=== PATIENT | female | born 1990 | race Two or more races ===

== ENCOUNTER → 2020-09-14 13:09 | Outpatient (CLI) | payer MEDICAID, SELFPAY ==
[2020-09-14 11:13] VITALS: BMI 28.3
== END ==
PROVIDERS: PCP Family Medicine; Visit Provider Nurse Practitioner Women's Health
DX: R10.2 Pelvic and perineal pain (principal)
CPT/HCPCS: 87070; 87205

== ENCOUNTER → 2020-10-01 12:55 | Outpatient (CLI) | payer MEDICAID, SELFPAY ==
[2020-10-01 10:50] VITALS: BMI 28.5
[2020-10-01 16:09] LABS: Chlamydia Trachomatis by PCR Negative (Negative); Neisserai gonorrhoeae by PCR Negative (Negative); Probe Check PASS; Sample Adequacy Control PASS; Specimen Processing Control PASS
== END ==
PROVIDERS: PCP Family Medicine; Referring Provider Nurse Practitioner Women's Health; Visit Provider Nurse Practitioner Women's Health
DX: Z11.3 Encounter for screening for infections with a predominantly sexual mode of transmission (principal)
CPT/HCPCS: 87491; 87591

== ENCOUNTER 2021-02-02 12:48 | Day surgery (SDC) | payer MEDICAID, SELFPAY ==
[2020-12-21 13:59] VITALS: BMI 29.8
[2021-01-28 15:50] VITALS: BMI 29.8
--- NOTE | 2021-02-01 13:27 | EKG12_ITS ---
Test Reason : PREOP Blood Pressure : / mmHG Vent. Rate : 082 BPM Atrial Rate : 082 BPM P-R Int : 180 ms QRS Dur : 106 ms QT Int : 386 ms P-R-T Axes : 062 094 050 degrees QTc Int : 450 ms Normal sinus rhythm Normal ECG Confirmed by SHARON DONOVAN, DEEPTI ([id number]), city editor STEPHANIE ARAMBULA ([id number]) on 02/01/2021 2:31:57 PM Referred By: Romina Moe Confirmed By:DEEPTI HERRERA MD
[2021-02-01 15:09] LABS: Hemoglobin 12.1 g/dL (12.0-15.0); Mean Corpuscular Hgb 26.4 pg (27.0-32.0); Mean Corpuscular Volume 85.2 fL (81-99); Mean Platelet Vol. 10.8 fl (6.2-12.0); Platelet Count 250 K/mm3 (150-450); RBC Distribution Width CV 12.7 % (11.6-14.6); Red Blood Count 4.58 M/mm3 (4.2-5.4); White Blood Count 5.4 K/mm3 (4.4-11.0)
[2021-02-01 15:43] LABS: Anion Gap 4 (5-15); BUN 7 mg/dL (7-18); BUN/Creat Ratio 13.5 RATIO (10-20); Calcium,Total 8.8 mg/dL (8.5-10.1); Chloride 105 mmol/L (98-107); Creatinine, Serum 0.52 mg/dL (0.55-1.02); EST Glomerular Filtration Rate 146 mL/min (>60); Est Glom Filt Rate - Afr Amer 177 mL/min (>60); Glucose 66 mg/dL (74-106); Potassium 3.6 mmol/L (3.5-5.1); Sodium Level 139 mmol/L (136-145)
[2021-02-02] VITALS (8 sets, daily range): BP systolic 101–120; BP diastolic 61–77; PULSE 69–85; RESP 16–18; TEMP 36.4–36.8; O2SAT 97–100; BMI 30.1
--- NOTE | 2021-02-02 | EMB_PTH ---
PATIENT: TRI SEXTON LOC: [facility] [place] U#:[id number] AGE/SX: 30/F ROOM: RE02/02/[address]: Dr. Romina Moe MD : 1990 BED: DIS: 02/02/2021 SPEC #: [id number] RECD: 02/02/21 15:42 STATUS: AMAURY REQ #: [id number] YAS: 02/02/21 00:[address]: Romina Moe DEPT: SURGICAL PATHOLOGY RECD BY: Vin Ignacio ENTERED: 02/03/21 07:33 SP TYPE: ENDOM BX/C OTHR DR: Dr. Giuliano Gill MD Tissues: Endometrium, NOS Procedures: Surgery Specimen Level IV HEADER OPERATION: Diagnostic laparoscopy, hysteroscopy, D & C PRE-OP DIAGNOSIS: Abnormal uterine bleeding; endometriosis, pelvic pain TISSUE SUBMITTED: Endometrial curettings MICROSCOPIC DIAGNOSIS Endometrial curettings: Proliferative endometrium. Fragments of benign ecto- and endocervical epithelium. SHERRI:fish 02/04/2021 MICROSCOPIC DESCRIPTION Slides are reviewed. GROSS DESCRIPTION Received in fixative is one container labeled with the patient's name and designated endometrial curettings. The specimen consists of multiple fragments of hemorrhagic soft tissue mixed with mucoid tissue that in aggregate measure 3 x 2.5 x 0.3 cm. The specimen is totally submitted in one cassette. / SHERRI:fish 02/03/21 TC:4 CPT: 31223
[2021-02-02 13:33] LABS: Internal QC Validated? YES +Cl - CLEAR BKGD; Pregnancy, Urine Negative Negative
[2021-02-02] MEDS: Lactated Ringers 1,000 ML 100 ML IV (13:52)
[2021-02-02] MEDS: Bupivacaine 0.25% 30 ML Vial (15:00)
--- NOTE | 2021-02-02 15:10 | PCM.OPRPT ---
Problem List (1) Abnormal uterine bleeding Status: Acute Comment: heavier since last delivery (2) Endometriosis Status: Acute Comment: ocps in past, laparoscopy. worsening. depot lupron in the past. recommend diagnostic laparosocpy ablation endometriosis d and c hysterosocpy (3) Pelvic pain Status: Acute Comment: Normal US and CT 08/2020 scanned to chart Failed antibiotic tx Arrange for PFPT GCC pending Report of Operation Date of Procedure: 02/02/21 Pre-Operative Diagnosis: aub endometriosis pelvic pain Post-Operative Diagnosis: same Surgery/Procedure Performed:: diagnostic laparoscopy d and c hysteroscopy logistics planning engineer: Angelina Gao Type of Anesthesia:: General Special Medications: none Specimen's removed: emc Drains: none Estimated Blood Loss (mL): 10 Fluids Replaced: crystlaloid Description of Procedure: Patient was taken the operating room and placed under neural anesthesia. She was prepped and draped in normal sterile fashion in the dorsolithotomy position. Bladder was drained clear urine and uterus sounded to 8 cm uterine manipulator was placed. Umbilical incision was made through the previous incision and the abdomen insufflated with CO2 gas after the incision was injected with quarter percent Marcaine. Diagnostic laparoscopy was performed with a 5 mm scope after the Optiview trocar was placed under direct visualization. Entire abdomen was well visualized and minimal scar tissue from previous surgeries were seen nothing active that would cause the patient's symptoms. Uterus tubes and ovaries were noted be within normal limits with no endometriosis implants seen. Full mobility of the uterus anteriorly and posteriorly was noted with no significant abnormalities. No additional abnormal vasculature was seen or pelvic congestion. All instruments removed from the abdomen and the incision was closed with 3-0 Monocryl. Hysteroscopy was then performed and lining of the uterus was noted to be showing no gross abnormalities. Sharp curettage was performed and specimen sent to pathology for analysis. Excellent hemostasis was noted and all instruments were removed from the patient patient was awoken and taken to the recovery in stable condition. Multi Select Codes - Urinary/Genital Urinary/Genital CPT Codes: 91361 Hysteroscopy,EMC, Polypectomy, Other Procedure See Report - [id number]
--- NOTE | 2021-02-02 15:15 | DCINST_ITS ---
Discharge Diet: No Restrictions - Increase fluid intake for the next 48 hours. Discharge Activity: Return to Normal Activity, May Drive - when you are no longer taking narcotic pain medications., May Shower, May Take a Tub Bath - in 7 days Additional Activity Instructions:: Ambulate often the next week after surgery. Nothing in the vagina for 5 days. Call your doctor if your incision/area has: Continuous Slow Oozing, Sudden Increased Bleeding, Increased Pain/ Swelling, Increased Redness, Foul Smelling Discharge Call your doctor if you observe: Fever of 101 or Higher Allergies/Adverse Reactions: Allergies hydrocodone Allergy (Intermediate, Verified 02/02/21 13:25) Nausea ibuprofen Allergy (Intermediate, Verified 02/02/21 13:25) Nausea/Vom/Diarrhea latex Allergy (Intermediate, Verified 02/02/21 13:25) Hives triptins Allergy (Intermediate, Uncoded 02/02/21 13:25) Chest tightness Medications to take at Discharge calcium citrate 250 mg calcium-vitamin D3 5 mcg (200 unit) tablet 1 tab PO DAILY 12/21/20 hydroxychloroquine 200 mg tablet 200 mg PO QHS 12/21/20 magnesium oxide 400 mg PO DAILY 12/21/20 prednisone 5 mg tablet 5 mg PO QHS 12/21/20 turmeric 400 mg capsule 400 mg PO DAILY 12/21/20 zinc 50 mg tablet 50 mg PO DAILY 12/21/20 Albuterol Aerosols [Ventolin Aerosols] 2.5 mg INHALATION Q4H PRN PRN 01/27/21 Albuterol IH (ProAir) [Proair Hfa (SP)Vent Pts] 1 - 2 puff INHALATION Q4H PRN PRN 01/27/21 [place]-3S/Dha/Epa/Fish Oil [Fish Oil 1,200 mg Softgel] 1 each PO DAILY 01/27/21 Tranexamic Acid 1,300 mg PO TID PRN 01/27/21 oxycodone-acetaminophen 5 mg-325 mg tablet 1 tablet PO Q4H PRN #20 tablet 01/29/21 promethazine 12.5 mg tablet 12.5 mg PO Q6H PRN #120 tablet 01/29/21 Primary Care Physician: Giuliano Gill MD [Primary Care Provider] - Test Results: Test results from this visit will be discussed in further detail at your follow- up appointment, if applicable. Please Follow Up With: Romina Moe MD - [phone]
[2021-02-02] MEDS: oxyCODONE 5 MG Tablet PO (17:25)
--- NOTE | 2021-02-04 08:00 | HP.PCM_ITS ---
- Problem List (1) Abnormal uterine bleeding Status: Acute Comment: heavier since last delivery (2) Endometriosis Status: Acute Comment: ocps in past, laparoscopy. worsening. depot lupron in the past. recommend diagnostic laparosocpy ablation endometriosis d and c hysterosocpy (3) Pelvic pain Status: Acute Comment: Normal US and CT 08/2020 scanned to chart Failed antibiotic tx Arrange for PFPT GCC pending History and Physical Date of Admission: 02/02/21 Intake Vital Signs 01/28/21 Height 5 ft 4 in 01/28/21 Weight: 174 lb 01/28/21 BMI 29.8 01/28/21 BP 120/70 Intake Visit Reasons: diag. lap. ablation of endometriosisi, D&C Client Service Coordinator Required: No Is patient in pain?: Yes Pain scale (1-10): 6 Allergies hydrocodone Allergy (Intermediate, Verified 01/28/21 15:50) Nausea ibuprofen Allergy (Intermediate, Verified 01/28/21 15:50) Nausea/Vom/Diarrhea latex Allergy (Intermediate, Verified 01/28/21 15:50) Hives triptins Allergy (Intermediate, Uncoded 01/27/21 10:23) Chest tightness Is last menstrual period known: Yes Last Menstral Period: 01/11/21 Post menopausal: No Patient : No : No PFSH Medical History Endometriosis (Acute) Lupus (Acute) Migraine (Acute) PID (acute pelvic inflammatory disease) (Acute) Rheumatoid arthritis (Acute) Surgical History H/O colonoscopy (Acute) H/O dilation and curettage (Acute) H/O endoscopy (Acute) H/O laparoscopy (Acute) History of tonsillectomy (Acute) S/P (Acute) Family History Mother Cervical cancer Grandmother Lung cancer Social History (Updated 01/28/21 @ 16:[address] Romina Moe MD) household members: significant other, children number of children: 2 current occupational status: unemployed current occupation: [employer] history of recent travel: No sexually active: Yes Smoking Status: Former smoker alcohol intake: current alcohol intake frequency: a few times a month substance use type: does not use what type of physical activity do you participate in: aerobics seatbelt use: always do you feel safe at home: Yes additional social history: boyfriend - Robby Kaplan [facility] diag. lap. ablation of endometriosisi, D&C: Details: TRI SEXTON is a 30 year old who presents for d and c hysteroscopy and ablation of endometriosis for pelvic pain, endoemtriosis. Female Reproductive History Last Menstral Period: 01/11/21 Cycle Length: 21-35 Bleeding Duration: 7 Questions: Metorrhagia: No, Sexually active: Yes, Dyspareunia: Yes, PCB: No Pregancy History 4 Elective abortions Hx Para 2 Spontaneous abortions Hx # Term Pregnancies Ectopic pregnancies Hx # Pregnancies Multiple births # of living children 2 Past Pregnancies Del. Date Name GA/Weeks Outcome Route Bth Weight Gen Labor Lgth Anesthesia Del Locatn Provider FOB 03/12/17 [place] 07/03/20 [place] ROS Const Constitutional: Denies fatigue, fever(s), headache(s), increased appetite, poor appetite, weight gain or weight loss Cardio Card: Denies chest pain Resp Resp: Denies cough or dyspnea : Reports as per HPI; denies difficulty urinating, painful urination, nipple discharge, urinary frequency, urinary incontinence, urinary hesitancy, urinary urgency, vaginal discharge, vaginal dryness, vaginal odor or vaginal itching Skin Skin/Breast: Denies change in hair, breast lump, breast pain, breast skin changes or nipple discharge Exam Const General: cooperative, healthy appearing, comfortable, no acute distress, well developed Nutritional Appearance: average body habitus Orientation: alert [facility] Head: normal to inspection, normocephalic Neck Neck: normal visual inspection, trachea midline Thyroid: thyroid normal Resp Effort & Inspection: normal respiratory effort GI Inspection: normal to inspection, non-distended Palpation: soft, no hepatosplenomegaly General: bladder normal to palpation External Female Exam: normal external appearance, normal appearance of the urethra Urethra: normal appearance of the urethra, normal palpation, no discharge Speculum Exam - Vagina: normal appearance of the vagina, normal vaginal dis charge Speculum Exam - Cervix: normal appearance of the cervix, nontender Bimanual Exam- Vagina & Uterus: normal bimanual exam, uterine size normal, bladder normal to palpation, uterine shape normal, No cervical tenderness, uterine mobility normal, uterine consistency normal, normal cervical palpation, uterus non-tender Bimanual Exam- Adnexa, other: normal adnexae, adnexae mobile, no adnexal masses, pelvic support normal Pelvic Support: normal Skin General: no rashes or lesions noted Assessment & Plan Problems 1. Abnormal uterine bleeding N93.9 heavier since last delivery 2. Endometriosis N80.9 ocps in past, laparoscopy. worsening. depot lupron in the past. recommend diagnostic laparosocpy ablation endometriosis d and c hysterosocpy 3. Pelvic pain R10.[address] 08/2020 scanned to chart Failed antibiotic tx Arrange for PFPT GCC pending Plan After discussing the patient's diagnosis and treatment plan options, patient wishes to proceed with surgical management. I have discussed with the patient the risks, benefits, and alternatives of the procedure which include but are not limited to risks of anesthesia, bleeding, infection, possible damage to bowel, bladder, or surrounding vasculature which could lead to additional surgery to evaluate any complications. Patient agrees to procedure and wishes to proceed. ACOG/uptodate references given for additional information regarding procedure. Coding Level of Care Code No Charge Diagnoses Abnormal uterine bleeding N93.9 Endometriosis N80.9 Pelvic pain R10.2 UPDATE- I have seen the patient and performed any clinically relevant updates to the history and physical exam. Romina Moe MD
== END 2021-02-02 17:40 | disposition home or self-care (01) ==
LOC: SDC 12:49 → AC 12:50
PROVIDERS: Anesthesiology; PCP Family Medicine; Referring Provider Obstetrics & Gynecology; Visit Provider Obstetrics & Gynecology
PROC: (CPT 49320; principal; 2021-02-02 14:30)
DX: N93.9 Abnormal uterine and vaginal bleeding, unspecified (principal); Z20.828 Contact with and (suspected) exposure to other viral communicable diseases; N80.9 Endometriosis, unspecified; R10.2 Pelvic and perineal pain; Z79.899 Other long term (current) drug therapy; Z87.891 Personal history of nicotine dependence; M06.9 Rheumatoid arthritis, unspecified; M32.9 Systemic lupus erythematosus, unspecified; G43.909 Migraine, unspecified, not intractable, without status migrainosus
CPT/HCPCS: 00952; 58558; 36415; 80048; 81025; 85027; 86850; 86900; 86901; 87426; 88305; 93005; C9803; J7120; J2405

== ENCOUNTER → 2021-07-26 15:21 | Outpatient (CLI) | payer MEDICAID, SELFPAY ==
[2021-07-26 15:41] LABS: Absolute Lymphocyte Count 2.04 X10^3/uL (0.83-4.51); Absolute Neutrophil Count 3.1 X10^3/uL (2.0-7.7); Basophil# 0.02 X10^3/uL; Basophil% 0.3 % (0-1); Eosinophil# 0.05 X10^3/uL; Eosinophils% 0.8 % (0-5); Hematocrit 40.2 % (37-47); Hemoglobin 12.7 g/dL (12.0-15.0); Lymphocyte # 2.04 X10^3/ul (0.83-4.51); Lymphocyte % 34.2 % (19-41); Mean Corp Hgb Conc 31.6 g/dL (32-36); Mean Corpuscular Hgb 26.3 pg (27.0-32.0); Mean Corpuscular Volume 83.2 fL (81-99); Mean Platelet Vol. 10.2 fl (6.2-12.0); Monocyte# 0.79 X10^3/uL; Monocyte% 13.3 % (0-10); NRBC Flagged by Analyzer 0 % (0-5); Neutrophil # 3.05 X10^3/uL (2.7-7.7); Neutrophil % 51.2 % (47-70); Platelet Count 240 K/mm3 (150-450); RBC Distribution Width CV 12.5 % (11.6-14.6); RBC Distribution Width SD 37.8 fl (35.1-43.9); Red Blood Count 4.83 M/mm3 (4.2-5.4)
[2021-07-29 14:58] LABS: HPV APTIMA, High Risk Negative (Negative)
== END ==
PROVIDERS: PCP Family Medicine; Referring Provider Obstetrics & Gynecology; Visit Provider Obstetrics & Gynecology
DX: Z12.4 Encounter for screening for malignant neoplasm of cervix (principal); N93.9 Abnormal uterine and vaginal bleeding, unspecified
CPT/HCPCS: 36415; 85025; 87624; 88175; G0145

== ENCOUNTER 2022-07-28 10:29 | Day surgery (SDC) | payer MEDICAID, SELFPAY ==
[2022-07-28] VITALS (7 sets, daily range): BP systolic 105–119; BP diastolic 59–100; PULSE 70–83; RESP 16; TEMP 36.4–37.1; O2SAT 96–100; BMI 24.2
[2022-07-28 11:02] LABS: Internal QC Validated? YES +Cl - CLEAR BKGD
[2022-07-28 11:08] LABS: Pregnancy, Urine Negative Negative
[2022-07-28] MEDS: Lactated Ringers 1,000 ML 15 ML IV ×2 (11:25→13:29)
[2022-07-28] MEDS: Vancomycin IV 1,000 MG/200 ML BAG 200 MG IV (11:25)
--- NOTE | 2022-07-28 12:17 | DCINST_ITS ---
Discharge Instructions Diet Discharge Diet: No restrictions Activity Discharge Activity: May Not Shower May resume sexual activity in: 3 weeks Dressing / Incision Call your doctor if your incision/area has: Continuous Slow Oozing, Sudden Increased Bleeding, Increased Pain/ Swelling, Increased Redness, Foul Smelling Discharge and Swelling at the incision site Call your doctor if you observe: Fever of 101 or Higher, Inability to urinate and Inability to have a bowel movement Suture Line Care: Avoid Pulling/Pushing and Avoid Pinching/Bending Change Dressing in: do not change dressing Remove Dressing in: do not remove dressing Cleanse incision/area with: Keep Dressing Clean & Dry Follow Up Care Please Follow Up With: Gabriela Tierney MD When: next week in office as scheduled Test Results: Test results from this visit will be discussed in further detail at your follow- up appointment, if applicable. Discharge Plan Admission Attending Provider: Gabriela Tierney Primary Care Provider: Giuliano Gill Discharge Orders/Prescriptions Prescriptions: New oxycodone-acetaminophen [Percocet] 5-325 mg tablet 1 tab PO Q8H PRN (Reason: pain) 3 Days Qty: 10 0RF cephalexin [cephalexin] 500 mg capsule 500 mg PO Q12 3 Days Qty: 6 0RF Continued loratadine [Claritin] 10 mg tablet 10 mg PO DAILY gabapentin 300 mg capsule 300 mg PO TID fluoxetine 40 mg capsule 40 mg PO DAILY Qty: 30 12RF hydroxychloroquine [Plaquenil] 200 mg tablet 200 mg PO QHS calcium citrate 250 mg calcium-vitamin D3 5 mcg (200 unit) tablet 250 mg-5 mcg (200 unit) tablet 1 tab PO DAILY magnesium oxide 400 mg magnesium tablet 400 mg PO DAILY zgjfs-4y-kmr-epa-fish oil 1 EACH capsule 1 each PO DAILY albuterol sulfate 2.5 MG/3 ML solution for nebulization 2.5 mg INHALATION Q4H PRN PRN (Reason: Sob &/Or Wheezing) albuterol sulfate 1 PUFF inhaler 1 - 2 puff INHALATION Q4H PRN PRN (Reason: Sob &/Or Wheezing) zinc 15 mg Tablet 45 mg PO DAILY Botox 100 unit recon soln 100 unit IM QMONTH folic acid 400 mcg Tablet 0.4 mg PO DAILY zonisamide 100 mg capsule 100 mg PO DAILY ascorbic acid (vitamin C) [Vitamin C] 500 mg Tablet 500 mg PO DAILY fluticasone propionate 50 mcg/actuation spray,suspension 2 spray INTRANASAL DAILY B12 Active 1,000 mcg Tablet,Chewable 1,000 mcg PO DAILY Reyvow 100 mg Tablet 100 mg PO PRN PRN (Reason: Migraine Headache) Gemtesa 75 mg Tablet 75 mg PO DAILY Vitamin D (with calcium) 1,000 units PO/SL DAILY iuxiaik-nxjo-thjgv-oreg-capryl 1,000 mg PO/SL BID promethazine 12.5 mg tablet 12.5 mg PO Q6H PRN (Reason: nausea and vomiting) Qty: 120 4RF Referrals / Follow Up: Giuliano Gill MD [Primary Care Provider] - Disposition Disposition (needs filled in before D/C Order can be placed): Home, Self Care
--- NOTE | 2022-07-28 12:20 | RAD_ITS ---
STUDY: LATERAL VIEW OF THE SACRUM OF 1254 HOURS ON 07/28/2022 REASON FOR EXAM: 32-year-old female with Axonics Neurostimulator, Stage 1 placement. TECHNIQUE: One view of the pelvis was obtained. COMPARISON: None. FINDINGS: There are findings of placement of an Axonics Neurostimulator in the lower sacral region. There is no evidence of sacral or coccygeal fractures. The rectum a normal appearance. The anterior cervical soft tissues are normal in appearance. RAD/Pelvis 1 or 2 Views IMPRESSION: Axonics neurostimulator placement. Electronically Signed: Angel Urbano MD at 2:04 EDT ,
--- NOTE | 2022-07-28 12:21 | OP.PCM_ITS ---
Report of Operation Date of Procedure: 07/28/22 Pre-Operative Diagnosis: frequency of urination, urge incontinence, nocturia Post-Operative Diagnosis: same Surgery/Procedure Performed:: Axonics Stage 1 Description of Surgical Findings:: Surgeon: Gabriela Tierney Type of Anesthesia: MAC Estimated Blood Loss (mL): 5 cc Description of Procedure: The patient is a 32-year-old female with severe urinary urgency, frequency and urge incontinence as well as nocturia. She has failed first and second line management and now presents for a Axonics trial. Informed consent has been obtained. The patient was taken to the operating room and placed in a prone position on the operating room table. She was appropriately padded and secured. Anesthesia monitored the head, neck, airway, IV access and vital signs throughout the case. Once anesthesia was appropriately administered, the patient was prepped and draped in usual sterile fashion. Using fluoroscopic visualization, the sacrum was outlined including the S3 foramens bilaterally. The skin overlying these areas were then was then infiltrated with local anesthetic. At this time the needle was placed through the right side S3 foramen with good natalie response and no toe flexion, this was the best response obtained with bilateral needle insertions. The needle obturator was then removed and the guidewire was placed. A skin incision was made followed by placement of the dilator. The lead was then passed through the dilator into the pelvis using fluoroscopy for appropriate positioning. Good response was obtained on all 4 leads with natalie. The location of the pocket site was selected and the area was infiltrated with local anesthetic. A skin incision was made and the area was cauterized for hemostatic control. The lead was tunneled into the pocket site where it was cleaned and inserted in the lead extension. The tunneling device was then used to tunnel the lead extension to the contralateral side. The lead extension was then buried in the pocket site which was closed in 2 layers with 3-0 Vicryl interrupted suture followed by 4-0 Vicryl subcuticular suturing and skin glue. The lead insertion site was also closed with 4-0 Vicryl. The lead extension was secured to the skin using Steri- Strips. A drain sponge and OpSite's were then placed and everything was secured into position using cloth tape. The patient was then awakened and taken to the recovery room in good condition. There were no complications during this procedure. Grafts/Implants Used: Axonics lead and lead extension Complications none Admit VTE Documentation VTE Present on Admission: No VTE Mechan Device Prophylaxis: None VTE Pharm Prophylaxis ordered?: No Reason prophylaxis not ordered:: Treatment Not Indicated
[2022-07-28] MEDS: Lidocaine 1% /Epi 1:100 (20ml) 20 ML Vial (12:37)
== END 2022-07-28 14:17 | disposition home or self-care (01) ==
LOC: SDC 10:32 → AC 10:32
PROVIDERS: Anesthesiology; PCP Family Medicine; Visit Provider Urology
PROC: (CPT 64581; principal; 2022-07-28 12:20)
DX: N39.41 Urge incontinence (principal); M32.9 Systemic lupus erythematosus, unspecified; N94.12 Deep dyspareunia; R35.1 Nocturia; M79.7 Fibromyalgia; Z79.899 Other long term (current) drug therapy; Z87.891 Personal history of nicotine dependence
CPT/HCPCS: 64581; 72170; 76000; 81025; C1874; J7120; J2405

== ENCOUNTER 2022-08-18 07:19 | Day surgery (SDC) | payer MEDICAID, SELFPAY ==
[2022-08-18] VITALS (8 sets, daily range): BP systolic 126–145; BP diastolic 70–95; PULSE 72–82; RESP 16–18; TEMP 36.2–36.8; O2SAT 100
[2022-08-18 07:46] LABS: Internal QC Validated? YES +Cl - CLEAR BKGD
[2022-08-18 07:48] LABS: Pregnancy, Urine Negative Negative
[2022-08-18] MEDS: Lactated Ringers 1,000 ML 15 ML IV (07:58)
[2022-08-18] MEDS: Vancomycin IV 1,000 MG/200 ML BAG 200 MG IV (07:59)
--- NOTE | 2022-08-18 08:28 | DCINST_ITS ---
Discharge Instructions Diet Discharge Diet: No restrictions Activity Discharge Activity: May Shower (Tomorrow) May resume sexual activity in: 1 week Dressing / Incision Call your doctor if your incision/area has: Continuous Slow Oozing, Sudden Increased Bleeding, Increased Pain/ Swelling, Increased Redness, Foul Smelling Discharge and Swelling at the incision site Call your doctor if you observe: Fever of 101 or Higher, Inability to urinate and Inability to have a bowel movement Remove Dressing in: leave until fall off (Do not remove the skin glue) Follow Up Care Please Follow Up With: Gabriela Tierney MD When: In 2 to 4 weeks, call for appointment Test Results: Test results from this visit will be discussed in further detail at your follow- up appointment, if applicable. Discharge Plan Admission Attending Provider: Gabriela Tierney Primary Care Provider: Giuliano Gill Discharge Orders/Prescriptions Prescriptions: New oxycodone-acetaminophen [Percocet] 5-325 mg tablet 1 tab PO Q8H PRN (Reason: pain) 3 Days Qty: 10 0RF cephalexin [cephalexin] 500 mg capsule 500 mg PO Q12 3 Days Qty: 6 0RF Continued loratadine [Claritin] 10 mg tablet 10 mg PO DAILY gabapentin 300 mg capsule 300 mg PO TID hydroxychloroquine [Plaquenil] 200 mg tablet 200 mg PO QHS calcium citrate 250 mg calcium-vitamin D3 5 mcg (200 unit) tablet 250 mg-5 mcg (200 unit) tablet 1 tab PO DAILY magnesium oxide 400 mg magnesium tablet 400 mg PO DAILY ondansetron HCl 4 mg tablet 4 mg PO Q6H tizanidine 4 mg capsule 4 mg PO Q8H PRN (Reason: Spasms) flaxseed oil 1,000 mg capsule 1,000 mg PO DAILY Rx Instructions: administer with a meal pywsn-8o-cdn-epa-fish oil 1 EACH capsule 1 each PO DAILY albuterol sulfate 1 PUFF inhaler 1 - 2 puff INHALATION Q4H PRN PRN (Reason: Sob &/Or Wheezing) zinc 15 mg Tablet 45 mg PO DAILY Botox 100 unit recon soln 100 unit IM QMONTH folic acid 400 mcg Tablet 0.4 mg PO DAILY zonisamide 100 mg capsule 100 mg PO DAILY ascorbic acid (vitamin C) [Vitamin C] 500 mg Tablet 500 mg PO DAILY fluticasone propionate 50 mcg/actuation spray,suspension 2 spray INTRANASAL DAILY mecobalamin (vitamin B12) [B12 Active] 1,000 mcg Tablet,Chewable 1,000 mcg PO DAILY Reyvow 100 mg Tablet 100 mg PO PRN PRN (Reason: Migraine Headache) Gemtesa 75 mg Tablet 75 mg PO DAILY Vitamin D (with calcium) 1,000 units PO/SL DAILY etwuxxc-lslu-lzlqr-oreg-capryl 1,000 mg PO/SL BID promethazine 12.5 mg tablet 12.5 mg PO Q6H PRN (Reason: nausea and vomiting) Qty: 120 4RF fluoxetine 40 mg capsule See Rx Instructions .ROUTE .COMPLEX Qty: 30 12RF Dose Instruction: TAKE ONE CAPSULE BY MOUTH ONCE DAILY Rx Instructions: TAKE ONE CAPSULE BY MOUTH ONCE DAILY Referrals / Follow Up: Giuliano Gill MD [Primary Care Provider] - Disposition Disposition (needs filled in before D/C Order can be placed): Home, Self Care
--- NOTE | 2022-08-18 08:31 | PCM.OPRPT ---
Report of Operation Date of Procedure: 08/18/22 Pre-Operative Diagnosis: Urge incontinence, frequency, nocturia Post-Operative Diagnosis: Same Surgery/Procedure Performed:: Axonics stage II Surgeon: Gabriela Tierney Type of Anesthesia: MAC Estimated Blood Loss (mL): 5 cc Description of Procedure: The patient is a 32-year-old female with severe urge incontinence, frequency and nocturia who passed a stage I Axonics trial now presenting for implantation of her IPG. Informed consent was obtained. The patient was taken to the operating room and placed in a prone position on the operating room table. She was appropriately padded and secured to the table. Anesthesia monitored the head, neck, airway, IV access and vital signs throughout the case. Once anesthesia was appropriately administered the patient was prepped and draped in usual sterile fashion. The incision over the pocket site was infiltrated with local anesthetic and then opened using the knife with care being taken to avoid injury to the lead. Using the torque wrench the lead was removed from the lead extension which was cut and removed from the field. The pocket site was enlarged using the knife, blunt dissection and cautery. Once hemostasis was obtained, the lead was dried and inserted into the IPG and secured using the torque wrench. No inappropriate impedances were identified. The IPG was placed into the pocket site which was closed in 2 layers using first 3-0 interrupted followed by 4-0 subcuticular suturing and then skin glue was applied. The patient was then awakened and taken to the recovery room in good condition. There were no complications during this procedure. Grafts/Implants Used: Axonics IPG Complications None Admit VTE Documentation VTE Present on Admission: No VTE Mechan Device Prophylaxis: None VTE Pharm Prophylaxis ordered?: No Reason prophylaxis not ordered:: Treatment Not Indicated
[2022-08-18] MEDS: Bupivacaine 0.25% 30 ML Vial (08:52)
== END 2022-08-18 10:20 | disposition home or self-care (01) ==
LOC: SDC 07:21 → AC 07:22
PROVIDERS: Anesthesiology; PCP Family Medicine; Referring Provider Urology; Visit Provider Urology
PROC: (CPT 64590; principal; 2022-08-18 08:20)
DX: N39.41 Urge incontinence (principal); R35.0 Frequency of micturition; R35.1 Nocturia; L93.0 Discoid lupus erythematosus; E07.9 Disorder of thyroid, unspecified; J45.909 Unspecified asthma, uncomplicated; F17.200 Nicotine dependence, unspecified, uncomplicated; Z79.899 Other long term (current) drug therapy
CPT/HCPCS: 64590; 00300; 81025; J7120; J2405

== ENCOUNTER → 2022-11-29 | Outpatient (CLI) | payer MEDICAID, SELFPAY ==
--- NOTE | 2022-11-29 11:20 | RAD_ITS ---
EXAM: XR ABDOMEN, 1 VIEW CLINICAL INDICATION: KUB- BACK PAIN, URGENCY TECHNIQUE: Frontal supine view of the abdomen/pelvis. This report was created using [employer] report generation technology. COMPARISON: None. FINDINGS: LOWER THORAX: No acute pathology. GASTROINTESTINAL TRACT: Unremarkable. Non-obstructive. No bowel or stomach distention. ORGANS: Unremarkable as visualized. No organomegaly. No abnormal calcifications. BONES/JOINTS: No acute pathology. SOFT TISSUES: No acute pathology. VASCULATURE: Pelvic vein phleboliths. TUBES, LINES AND DEVICES: Implanted device overlying the right iliac crest with lead extending through a right sacral neural foramen. RAD/Abdomen Single View IMPRESSION: No acute findings. Electronically Signed: Sudheer Brown MD at 1:19 EST ,
== END | disposition home or self-care (01) ==
LOC: MTRAD 11:19
PROVIDERS: PCP Family Medicine; Referring Provider Urology; Visit Provider Urology
DX: M54.50 Low back pain, unspecified (principal); R39.15 Urgency of urination
CPT/HCPCS: 74018

== ENCOUNTER 2023-01-19 07:44 | Day surgery (SDC) | payer MEDICAID, SELFPAY ==
[2023-01-19] VITALS (8 sets, daily range): BP systolic 106–119; BP diastolic 57–75; PULSE 56–80; RESP 16–18; TEMP 36.6–36.8; O2SAT 98–100; BMI 23.8
[2023-01-19 08:05] LABS: Internal QC Validated? YES +Cl - CLEAR BKGD
[2023-01-19] MEDS: Vancomycin IV 1,000 MG/200 ML BAG 200 MG IV (08:05)
[2023-01-19 08:06] LABS: Pregnancy, Urine Negative Negative
[2023-01-19] MEDS: Lactated Ringers 1,000 ML 15 ML IV (08:06)
--- NOTE | 2023-01-19 08:30 | RAD_ITS ---
STUDY: INTRAOPERATIVE FLUOROSCOPY TECHNIQUE: The examination was performed with referring physician in attendance. Under fluoroscopic observation, fluoroscopic images were obtained. Radiologist was not present for the study. Radiologist did not perform the procedure. This dictation is for documentation of the radiation dosage only. There is no interpretation of the images. TOTAL NUMBER OF IMAGES: 2 COMPARISON: 2.7.23 RADIATION DOSE: 5.3 mGy FLUOROSCOPY TIME: 23.7 seconds REASON FOR EXAM: AXONIC POCKET REVISION AND NEW LEADS Female, 32 years old. FINDINGS: Images of the sacrum. There is a left side sided subcutaneous implanted electronic leads extending into the spinal canal. This is likely an SCS (spinal cord stimulator). RAD/Pelvis 1 or 2 Views IMPRESSION: Fluoroscopic assistance images were obtained. Dictation for documentation purposes only. Electronically Signed: Sudheer Paz MD at 14:21 EDT ,
--- NOTE | 2023-01-19 08:39 | EX.PCM.DISCH ---
Discharge Instructions Diet Discharge Diet: No restrictions Activity Discharge Activity: May Shower (Tomorrow) May resume sexual activity in: 1 week Dressing / Incision Call your doctor if your incision/area has: Continuous Slow Oozing, Sudden Increased Bleeding, Increased Pain/ Swelling, Increased Redness, Foul Smelling Discharge and Swelling at the incision site Call your doctor if you observe: Fever of 101 or Higher, Inability to urinate and Inability to have a bowel movement Suture Line Care: Avoid Pulling/Pushing and Avoid Pinching/Bending Remove Dressing in: leave until fall off (Leave skin glue until it falls off) Follow Up Care Please Follow Up With: Gabriela Tierney MD When: 3 to 4 weeks, call for appointment Test Results: Test results from this visit will be discussed in further detail at your follow-up appointment, if applicable. Discharge Plan Admission Attending Provider: Gabriela Tierney Primary Care Provider: Giuliano Gill Discharge Orders/Prescriptions Prescriptions: New oxycodone-acetaminophen [Percocet] 5-325 mg tablet 1 tab PO Q8H PRN (Reason: pain) 3 Days Qty: 10 0RF cephalexin [cephalexin] 500 mg capsule 500 mg PO Q12 3 Days Qty: 6 0RF Continued loratadine [Claritin] 10 mg tablet 10 mg PO DAILY hydroxychloroquine [Plaquenil] 200 mg tablet 200 mg PO QHS magnesium oxide 400 mg magnesium tablet 400 mg PO DAILY ondansetron HCl 4 mg tablet 4 mg PO Q6H PRN (Reason: Nausea) tizanidine 4 mg capsule 4 mg PO Q8H PRN (Reason: Spasms) flaxseed oil 1,000 mg capsule 1,000 mg PO DAILY Rx Instructions: administer with a meal pregabalin 100 mg capsule 300 mg PO DAILY bmxbe-[id number]-htl-epa-fish oil 1 EACH capsule 1 each PO DAILY albuterol sulfate 1 PUFF inhaler 1 - 2 puff INHALATION Q4H PRN PRN (Reason: Sob &/Or Wheezing) zinc 15 mg Tablet 45 mg PO DAILY Botox 100 unit recon soln 100 unit IM .Q3 MONTHS folic acid 400 mcg Tablet 0.4 mg PO DAILY zonisamide 100 mg capsule 100 mg PO DAILY ascorbic acid (vitamin C) [Vitamin C] 500 mg Tablet 500 mg PO DAILY fluticasone propionate 50 mcg/actuation spray,suspension 2 spray INTRANASAL DAILY mecobalamin (vitamin B12) [B12 Active] 1,000 mcg Tablet,Chewable 1,000 mcg PO DAILY pszsqju-rlml-kaait-oreg-capryl 1,000 mg PO/SL BID cholecalciferol (vitamin D3) [Vitamin D3] 25 mcg (1,000 unit) Tablet 25 mcg PO DAILY Humira(CF) Pen 40 mg/0.4 mL pen injector kit 40 mg SUBCUT .[id number] Ubrelvy 100 mg tablet 100 mg PO PRN PRN (Reason: MIGRAINES) promethazine 12.5 mg tablet 12.5 mg PO Q6H PRN (Reason: nausea and vomiting) Qty: 120 4RF fluoxetine 40 mg capsule See Rx Instructions .ROUTE .COMPLEX Qty: 30 12RF Dose Instruction: TAKE ONE CAPSULE BY MOUTH ONCE DAILY Rx Instructions: TAKE ONE CAPSULE BY MOUTH ONCE DAILY Myfembree 40-1-0.5 mg tablet 1 tab PO DAILY Qty: 30 12RF Referrals / Follow Up: Giuliano Gill MD [Primary Care Provider] - Disposition Disposition (needs filled in before D/C Order can be placed): Home, Self Care
--- NOTE | 2023-01-19 08:42 | PCM.OPRPT ---
Report of Operation Date of Procedure: 01/19/23 Pre-Operative Diagnosis: Urge incontinence, back pain Post-Operative Diagnosis: Same Surgery/Procedure Performed:: Axonics lead removal and placement and pocket revision Surgeon: Gabriela Tierney Estimated Blood Loss (mL): 10 cc. Description of Procedure: The patient is a 32-year-old female who underwent a successful Axonics stage I and II procedure and then fell. The lead was determined to have changed position as seen on KUB and when the unit was turned on, the patient had significant pain from it. The decision was made to take her to the operating room for lead replacement and pocket revision secondary to it being close to her skin. Informed consent was obtained. The patient was taken to the operating room and placed on the operating room table in a prone position. She was appropriately padded and secured to the table. Anesthesia monitored the head, neck, airway, IV access and vital signs throughout the case. Once anesthesia was appropriately administered, she was prepped and draped in usual sterile fashion. The area overlying her existing lead and pocket site were infiltrated with lidocaine. An incision was made in the skin in both of these areas. Dissection continued down to the pocket site to the battery itself which was then brought into the operative field. The lead was removed from the battery using the torque wrench. The lead was isolated and the lead insertion site and removed from the patient in its entirety. Using fluoroscopic visualization, a new lead was inserted into the same S3 foramen on the right side. The patient had great natalie and toe flexion on all 4 leads. The lead was then tunneled into the existing pocket site which was prepared at the deeper level and inferior to the existing pocket through the same incision. Hemostasis was obtained in the pocket site using cautery. The pocket was irrigated with saline. The lead was cleaned dried and inserted into the battery and secured using the torque wrench. The battery was placed into the pocket. The pocket was closed in 2 layers with 3-0 Vicryl and 4-0 Monocryl. Skin glue was then applied to the incision overlying the pocket and the lead insertion site. The patient was then awakened and taken to the recovery room in good condition. There were no complications during this procedure. Grafts/Implants Used: Axonics lead Complications None Admit VTE Documentation VTE Present on Admission: No VTE Mechan Device Prophylaxis: None VTE Pharm Prophylaxis ordered?: No Reason prophylaxis not ordered:: Treatment Not Indicated
[2023-01-19] MEDS: Lidocaine 1% /Epi 1:100 (20ml) 20 ML Vial (08:57)
[2023-01-19] MEDS: oxyCODONE 5 MG Tablet PO (10:38)
[2023-01-19] MEDS: Acetaminophen 325 MG Tablet PO (10:38)
== END 2023-01-19 11:11 | disposition home or self-care (01) ==
LOC: SDC 07:45 → AC 07:46
PROVIDERS: Anesthesiology; PCP Family Medicine; Referring Provider Urology; Visit Provider Urology
PROC: (CPT 64595; principal; 2023-01-19 08:20)
DX: Z45.2 Encounter for adjustment and management of vascular access device (principal); N39.41 Urge incontinence; J45.909 Unspecified asthma, uncomplicated; Z79.899 Other long term (current) drug therapy; Z87.891 Personal history of nicotine dependence
CPT/HCPCS: 64595; 64561; 00400; 72170; 76000; 81025; J7120; J2405

== ENCOUNTER → 2023-06-14 | Outpatient (CLI) | payer MEDICAID, SELFPAY ==
--- NOTE | 2023-06-14 11:58 | RAD_ITS ---
STUDY: X-RAY - ABDOMEN/PELVIS REASON FOR EXAM: Female, 33 years old. Urinary incontinence. Evaluate stimulator. TECHNIQUE: Single AP view of the abdomen / pelvis on 2 images. COMPARISON: Pelvic x-rays dated January 19, 2023. FINDINGS: Normal visualized lung bases. There is an unremarkable bowel gas pattern. There is no demonstrated free abdominal air. The visualized liver, spleen and kidneys are grossly normal in size and morphology. Stimulator unchanged in position with wire projected over the right sacrum. Phleboliths. Normal visualized osseous structures. RAD/Abdomen Single View IMPRESSION: No discontinuity of the wire of the stimulator. Electronically Signed: Cale Kinney MD at 12:29 EDT ,
== END | disposition home or self-care (01) ==
PROVIDERS: PCP Family Medicine; Referring Provider Urology; Visit Provider Urology
DX: R32 Unspecified urinary incontinence (principal)
CPT/HCPCS: 74018

== ENCOUNTER → 2023-09-08 | Outpatient (CLI) | payer MEDICAID, SELFPAY ==
[2023-09-12 08:12] LABS: Chlamydia By Nucleic Acid AMP Negative (Negative); Gonococcus By Nucleic Acid AMP Negative (Negative)
== END | disposition home or self-care (01) ==
LOC: LABSPEC 17:04
PROVIDERS: PCP Family Medicine; Visit Provider Advanced Practice Midwife
DX: Z20.2 Contact with and (suspected) exposure to infections with a predominantly sexual mode of transmission (principal)
CPT/HCPCS: 87491; 87591

== ENCOUNTER 2023-09-21 09:39 | Day surgery (SDC) | payer MEDICAID, SELFPAY ==
--- NOTE | 2023-09-21 11:03 | DCINST_ITS ---
Discharge Instructions Diet Discharge Diet: No restrictions Activity Discharge Activity: Return to Normal Activity (no exercise or strenuous activity for 48 hurs) and May Shower (on Monday morning) May resume sexual activity in: 1 week Dressing / Incision Call your doctor if your incision/area has: Continuous Slow Oozing, Sudden Increased Bleeding, Increased Pain/ Swelling, Increased Redness, Foul Smelling Discharge and Swelling at the incision site Call your doctor if you observe: Fever of 101 or Higher, Inability to urinate and Inability to have a bowel movement Remove Dressing in: do not remove dressing Additional Dressing/Incision Instructions:: do not remove the skin glue Follow Up Care Please Follow Up With: Gabriela Tierney MD When: the office will call the patient for arrangements Test Results: Test results from this visit will be discussed in further detail at your follow- up appointment, if applicable. Discharge Plan Admission Attending Provider: Gabriela Tierney Primary Care Provider: Giuliano Gill Discharge Orders/Prescriptions Prescriptions: New oxycodone-acetaminophen [Percocet] 5-325 mg tablet 1 tab PO Q8H PRN (Reason: pain) 3 Days Qty: 10 0RF cephalexin [cephalexin] 500 mg capsule 500 mg PO Q12 3 Days Qty: 6 0RF Continued loratadine [Claritin] 10 mg tablet 10 mg PO DAILY hydroxychloroquine [Plaquenil] 200 mg tablet 200 mg PO QHS magnesium oxide 400 mg magnesium tablet 400 mg PO DAILY ondansetron HCl 4 mg tablet 4 mg PO Q6H PRN (Reason: Nausea) tizanidine 4 mg capsule 4 mg PO Q8H PRN (Reason: Spasms) flaxseed oil 1,000 mg capsule 1,000 mg PO DAILY Rx Instructions: administer with a meal vrpck-7m-iqi-epa-fish oil 1 EACH capsule 1 each PO DAILY albuterol sulfate 1 PUFF inhaler 1 - 2 puff INHALATION Q4H PRN PRN (Reason: Sob &/Or Wheezing) zinc 15 mg Tablet 45 mg PO DAILY Botox 100 unit recon soln 100 unit IM .Q3 MONTHS folic acid 400 mcg Tablet 0.4 mg PO DAILY zonisamide 100 mg capsule 100 mg PO QHS ascorbic acid (vitamin C) [Vitamin C] 500 mg Tablet 500 mg PO DAILY fluticasone propionate 50 mcg/actuation spray,suspension 2 spray INTRANASAL DAILY mecobalamin (vitamin B12) [B12 Active] 1,000 mcg Tablet,Chewable 1,000 mcg PO DAILY hivfdow-iazn-wdqjx-oreg-capryl 1,000 mg PO/SL BID cholecalciferol (vitamin D3) [Vitamin D3] 25 mcg (1,000 unit) Tablet 25 mcg PO DAILY Ubrelvy 100 mg tablet 100 mg PO PRN PRN (Reason: MIGRAINES) gabapentin 300 mg capsule 300 mg PO TID fluoxetine 40 mg capsule 40 mg PO DAILY Rx Instructions: TAKE ONE CAPSULE BY MOUTH ONCE DAILY promethazine 12.5 mg tablet 12.5 mg PO Q6H PRN (Reason: nausea and vomiting) Qty: 120 4RF Myfembree 40-1-0.5 mg tablet 1 tab PO DAILY Qty: 30 12RF Referrals / Follow Up: Giuliano Gill MD [Primary Care Provider] - Disposition Disposition (needs filled in before D/C Order can be placed): Home, Self Care
--- NOTE | 2023-09-21 11:07 | PCM.OPRPT ---
Report of Operation Date of Procedure: 09/21/23 Pre-Operative Diagnosis: urge incontinence Post-Operative Diagnosis: same Surgery/Procedure Performed:: Axonics Lead Replacement Surgeon: Gabriela Tierney Type of Anesthesia: MAC Description of Procedure: The patient is a 33-year-old female who has had stage I and II Axonics with 1 revision previously. The first Axonics worked well for her, that lead then migrated and was replaced. This lead is what is in situ at the present time. It is not working for her and it is causing discomfort with a stimulation in her vagina. She is now here for lead replacement. Informed consent was obtained. The patient was taken to the operating room and placed in a prone position on the operating room table. Anesthesia monitored the head, neck, airway, IV access and vital signs throughout the case. Once anesthesia was appropriately administered she was prepped and draped in usual sterile fashion. Using fluoroscopic visualization, the outline of her S3 foramen bilaterally was identified on her skin and these areas were infiltrated with local anesthetic. At this time an incision was made over the right S3 foramen where the existing lead was inserted. The pocket site was also infiltrated with local anesthetic and then opened using a knife and Bovie cautery. The battery was brought into the operative field and the lead was removed using the torque wrench. The lead in its entirety was removed from the insertion site using hemostats and constant pressure. Using fluoroscopic visualization laterally, a needle was inserted through the S3 foramen on the right side and good stimulation was achieved. This was after multiple attempts at needle insertions for S3 foramen on her left side, her right side as well as her S4 on the right and left sides. We were having difficulty obtaining good stimulation and eventually the right S3 foramen was felt to be the best option. The guidewire was placed through the needle and then the dilator was inserted. The lead was placed and good stimulation was achieved on all 4 leads. For this patient, the best stimulation was achieved in a very superficial location. At this time the lead was tunneled into the existing pocket site and the existing pocket was slightly modified in position as the patient was experiencing pain in the medial aspect of the pocket. The old pocket was closed using running 3-0 Vicryl suture. The new pocket was developed using Bovie cautery and blunt dissection and hemostasis was achieved. At this time the battery was placed into the pocket site which was closed in 2 layers with 3-0 interrupted Vicryl and 4-0 Monocryl subcuticular suturing. Skin glue was then applied. The incision for the lead insertion site were closed in the same fashion. The patient was then awakened and taken to the recovery room in good condition. There were no complications during this procedure. Grafts/Implants Used: Axonics Lead Complications none Admit VTE Documentation VTE Present on Admission: No VTE Pharm Prophylaxis ordered?: No Reason prophylaxis not ordered:: Treatment Not Indicated
== END 2023-09-21 15:30 | disposition home or self-care (01) ==
LOC: PAT 09:41 → AC 09:42
PROVIDERS: PCP Family Medicine; Referring Provider Urology; Visit Provider Urology
DX: N39.41 Urge incontinence (principal)
CPT/HCPCS: J2405

== ENCOUNTER → 2023-11-24 | Outpatient (CLI) | payer MEDICAID, SELFPAY ==
[2023-09-21] VITALS (15 sets, daily range): BP systolic 97–130; BP diastolic 54–89; PULSE 68–88; RESP 16–18; TEMP 36.3–36.4; O2SAT 97–100; BMI 23.4
[2023-09-21 10:08] LABS: Internal QC Validated? YES +Cl - CLEAR BKGD; Record Kit Lot#,Urine Preg HCG0000667200
[2023-09-21 10:11] LABS: Pregnancy, Urine Negative Negative
[2023-09-21] MEDS: Lactated Ringers 1,000 ML 15 ML IV (10:16)
[2023-09-21] MEDS: Vancomycin IV 1,000 MG/200 ML BAG 200 MG IV (10:17)
--- NOTE | 2023-09-21 11:00 | RAD_ITS ---
PROCEDURE: AXONICS placement. DATE OF EXAMINATION: September 21, 2023. INDICATION: Female, 33 years old. Bladder control. FLUOROSCOPY TIME (if supplied): (33.8 seconds) minutes/seconds. 16.11 mGy. 3 images were submitted. RAD/Pelvis 1 or 2 Views IMPRESSION: Intraoperative fluoroscopic imaging provided for AXONICS placement. Electronically Signed: Dewayne Mccormick MD at 10:54 EST ,
[2023-09-21] MEDS: Lidocaine 1%/Epi 1:200 (30ml) 30 ML AMPUL (11:23)
[2023-09-21] MEDS: Ketorolac 30 MG/ML Syringe IV (13:37)
[2023-09-21] MEDS: Oxycodone/Apap 5/325 Tablet PO (15:28)
== END | disposition home or self-care (01) ==
LOC: SDC 08:16 → PAT 13:23
PROVIDERS: PCP Family Medicine; Visit Provider Urology
PROC: (CPT 64581; principal; 2023-09-21 10:50)
DX: N39.41 Urge incontinence (principal); M06.9 Rheumatoid arthritis, unspecified; R35.0 Frequency of micturition; R35.1 Nocturia; R10.2 Pelvic and perineal pain; N94.12 Deep dyspareunia; M62.89 Other specified disorders of muscle; D64.9 Anemia, unspecified; J45.909 Unspecified asthma, uncomplicated; G43.909 Migraine, unspecified, not intractable, without status migrainosus; Z79.899 Other long term (current) drug therapy; Z87.891 Personal history of nicotine dependence
CPT/HCPCS: 64581; 00630; 72170; 76000; 81025; J7120; J2405

== ENCOUNTER → 2024-08-19 | Outpatient (CLI) | payer MEDICAID, SELFPAY ==
--- NOTE | 2024-08-19 12:46 | RAD_ITS ---
HISTORY: Urgency of urination. TECHNIQUE: XR Abdomen 1 View. COMPARISON: 06/14/2023. FINDINGS: BOWEL GAS PATTERN: No dilated bowel loops identified. Scattered stool in the colon. FREE AIR: Not assessed on supine view. CALCIFICATIONS: Pelvic phleboliths observed. BONES: Unremarkable. Sacral stimulator with coiled wire projected over the right sacrum. SOFT TISSUES: Lung bases clear. RAD/Abdomen Single View IMPRESSION: Non-obstructive bowel gas pattern. Sacral stimulator as above. Electronically Signed: Mily Miller MD at 8:46 EDT ,
== END | disposition home or self-care (01) ==
LOC: MTRAD 12:44
PROVIDERS: PCP Family Medicine; Referring Provider Urology; Visit Provider Urology
DX: R39.15 Urgency of urination (principal)
CPT/HCPCS: 74018

== ENCOUNTER → 2024-11-27 | Outpatient (CLI) | payer MEDICAID, SELFPAY ==
--- NOTE | 2024-11-27 15:00 | US_ITS ---
PROCEDURE: PELVIC W/ TRANSVAGINAL REASON FOR EXAM: Pelvic pain. COMPARISON: None. FINDINGS Anteverted uterus which measures 7.9 x 5.5 x 4.9 cm. No fibroids. The endometrium measures 10 mm in thickness. Nabothian cysts are present. Right ovary measures 2.8 x 2.9 x 2.4 cm. Preserved vascular flow. Left ovary measures 3.3 x 1.8 x 2.2 cm. Preserved vascular flow. Prominent loops of small bowel. US/Pelvic w/ Transvaginal IMPRESSION: No acute abnormalities of the uterus or ovaries. Prominent loops of small bowel. If there is clinical concern for obstruction, consider CT abdomen and pelvis. Reading Location: [id number]
== END | disposition home or self-care (01) ==
LOC: US 14:57
PROVIDERS: PCP Family Medicine; Referring Provider Nurse Practitioner Women's Health; Visit Provider Nurse Practitioner Women's Health
DX: R10.2 Pelvic and perineal pain (principal); N80.9 Endometriosis, unspecified
CPT/HCPCS: 76830; 76856

== ENCOUNTER → 2025-02-18 | Outpatient (CLI) | payer MEDICAID, SELFPAY ==
[2025-02-20 04:07] LABS: Chlamydia By Nucleic Acid AMP Negative (Negative); Gonococcus By Nucleic Acid AMP Negative (Negative)
== END | disposition home or self-care (01) ==
LOC: LABSPEC 11:18
PROVIDERS: PCP Family Medicine; Referring Provider Nurse Practitioner Family; Visit Provider Nurse Practitioner Family
DX: N89.8 Other specified noninflammatory disorders of vagina (principal)
CPT/HCPCS: 87070; 87077; 87205; 87491; 87591